=== PATIENT | male | born 1945 | race Caucasian/White ===

== ENCOUNTER → 2016-08-10 | Outpatient (CLI) | payer MEDICARE, OTHER ==
[~2016-08-10] MED LIST: CATAPRES 0.1MG0.1 MG PO; FINASTERIDE5 MG PO; FLOMAX 0.4 MG0.4 MG PO; FLONASE ALLER15.8 ML; LIPITOR TAB 2020 MG PO; METHOTREXATE T2.5 MG PO; NEURONTIN 300300 MG PO; NORVASC 5 MG TAB5 MG PO; PROVENTIL HFA 61 INH INH; SPIRIVA HANDIH18 MCG INH; TENORMIN 50 MG50 MG PO; TIZANIDINE HCL4 MG PO; ULTRAM50 MG PO; VISTARIL25 MG PO; ZYLOPRIM 100 M100 MG PO
== END ==
LOC: EXRD 14:27
DX: M54.5 Low back pain (principal); M47.816 Spondylosis without myelopathy or radiculopathy, lumbar region
CPT/HCPCS: 72100